=== PATIENT | female | born 1955 | race Asian ===

== ENCOUNTER 2019-04-24 11:27 | Emergency (ER) | payer OTHER ==
[~2019-04-24] VITALS: Ht 157.5 cm; Wt 52.2 kg
--- NOTE | 2019-04-24 11:33 | NUR ---
Placed in room 6. Placed on monitoring coordinator, blood pressure machine and pulse oximeter. To gown for exam. Side rails up. Report given to Jose Manuel AVINA.
[2019-04-24 11:34] VITALS: BP_SYST 117
--- NOTE | 2019-04-24 11:40 | NUR ---
ER at bedside examining patient.
--- NOTE | 2019-04-24 11:49 | NUR ---
63 year old female patient was driven to er by her . pt is a/ox4, ambulatory, no distress at this time. pt states she has felt her heart fluttering and palpatations for approx 1-2 weeks. pt states she contacted her primary care provider yesterday 04/23 and he instructed her to go the er if the symptoms persisted, or got worse. pt states the symptoms have not increased in severity during this time, and she remains asymptomatic. pt made decision to come to er based on md reccomendation and she stated it "bothers" her. pt denies sob, cp, n/v, dizziness, blurred vision. pt states no other medical complaint at this time. pt resting in ed bed comfortably. will continue to monitor.
[2019-04-24 11:56] LABS: BASOPHILS % (AUTO) 0.7 % (0.0-2.0); EOSINOPHILS # (AUTO) 0.1 K/uL (0.0-0.4); EOSINOPHILS % (AUTO) 1.7 % (0.0-4.0); HEMATOCRIT 37.1 % (36-48); HEMOGLOBIN 12.6 g/dL (12.0-16.0); LYMPHOCYTES # (AUTO) 1.4 K/uL (1.0-5.5); LYMPHOCYTES % (AUTO) 29.5 % (20.5-51.5); MEAN CORPUSCULAR HEMOGLOBIN 31 pg (27-31); MEAN CORPUSCULAR HGB CONC 34 % (32-36); MEAN CORPUSCULAR VOLUME 92 fL (79.0-98.0); MONOCYTES # (AUTO) 0.4 K/uL (0.0-1.0); MONOCYTES % (AUTO) 8.2 % (1.7-9.3); NEUTROPHILS # (AUTO) 2.8 K/uL (1.8-7.7); NEUTROPHILS % (AUTO) 59.9 % (40.0-70.0); PLATELET COUNT (AUTO) 192 K/uL (130-430); RED BLOOD CELL COUNT(AUTO) 4.02 MIL/uL (4.2-6.2); RED CELL DISTRIBUTION WIDTH 13.3 % (9.0-15.0); WHITE BLOOD COUNT (AUTO) 4.7 K/uL (4.8-10.8)
[2019-04-24 12:11] LABS: CALCIUM 8.5 mg/dL (8.4-11.0); CREATININE 0.75 mg/dL (0.55-1.30); POTASSIUM 3.6 mmol/L (3.5-5.1)
[2019-04-24 12:25] LABS: ALBUMIN 3.3 g/dL (3.4-4.8); THYROID STIMULATING HORMONE 1.92 uIu/mL (0.36-3.74); TOTAL BILIRUBIN 0.3 mg/dL (0.0-1.0)
--- NOTE | 2019-04-24 12:28 | NUR ---
Received report from FABRICE Richard. Pt is resting in bed comfortable, no acute distress noted.
--- NOTE | 2019-04-24 13:30 | NUR ---
Patient given written and verbal discharge instructions and verbalizes understanding. ER MD discussed with patient the results and treatment provided. Patient in stable condition. ID arm band removed.Opportunity for questions provided and answered. Medication side effect fact sheet provided.
[2019-04-24 15:13] VITALS: BP_SYST 95
== END 2019-04-24 13:30 | disposition home or self-care (01) ==
LOC: SED 11:27
DX: R00.2 Palpitations (principal); E03.9 Hypothyroidism, unspecified
CPT/HCPCS: 36415; 71045; 80053; 82550-TC; 83880; 84443-TC; 84484; 85025; 93005; 99284

== ENCOUNTER 2022-07-10 19:35 | Emergency (ER) | payer OTHER ==
[~2022-07-10] VITALS: Ht 157.5 cm; Wt 52.2 kg
[2022-07-10 20:04] VITALS: BP_SYST 132
--- NOTE | 2022-07-10 20:10 | NUR ---
Patient triaged and placed in waiting room. VS checked and patient appears in no acute distress at this time. Accompanied by family, awaiting available bed, and MD notified of need for MSE.
--- NOTE | 2022-07-10 20:53 | NUR ---
Patient ambulatory to bed 2 for evaluation and treatment
[2022-07-10] MEDS ORDERED: BACI15OI13 TP (21:35)
[2022-07-10] MEDS ORDERED: BACITRACIN/POLYMYXIN B SULFATE 30 GM TOPICAL OINT. TP ONE (22:00)
[2022-07-10] MEDS ORDERED: DIPHTH,PERTUSS(ACELL),TET VAC 0.5 ML VIAL (Tdap) I.M. ONE (22:00)
[2022-07-10] MEDS ORDERED: BACITRACIN 1 GM OINT TP ONE (22:01)
[2022-07-10 22:15] VITALS: BP_SYST 127
--- NOTE | 2022-07-10 22:16 | NUR ---
Patient given written and verbal discharge instructions and verbalizes understanding. ER MD discussed with patient the results and treatment provided. Patient in stable condition. ID arm band removed. IV catheter removed intact and dressing applied, no active bleeding. Rx of bacitracin given. Patient educated on pain management and to follow up with PMD. Pain Scale . Opportunity for questions provided and answered. Medication side effect fact sheet provided.
== END 2022-07-10 22:14 | disposition home or self-care (01) ==
LOC: SED 19:35
DX: S01.111A Laceration without foreign body of right eyelid and periocular area, initial encounter (principal); Z79.899 Other long term (current) drug therapy; W01.0XXA Fall on same level from slipping, tripping and stumbling without subsequent striking against object, initial encounter; Y93.89 Activity, other specified; Y92.89 Other specified places as the place of occurrence of the external cause; Y99.8 Other external cause status
CPT/HCPCS: 90715; 99283